=== PATIENT | female | born 1950 | race Two or more races ===

== ENCOUNTER → 2020-02-28 | Outpatient (CLI) | payer MEDICARE, OTHER | END | disposition home or self-care (01) | LOC: XY 08:38 | PROVIDERS: ATTEND Surgery | DX: M79.605 Pain in left leg (principal) | CPT/HCPCS: 93926 ==

== ENCOUNTER 2023-09-11 07:21 | Emergency (ER) | payer MEDICARE, OTHER ==
[~2023-09-11] VITALS: Ht 160 cm; Wt 59.3 kg
[2023-09-11 08:00] VITALS: BP 126/93; PULSE 95; RESP 18; TEMP 98; O2SAT 98
[2023-09-11] MEDS: LIDOCAINE 1% HCL (LOCAL ANESTH.) INJ 20ML MDV IJ ONE (08:01)
[2023-09-11] MEDS: TETANUS-DIPTH-ACEL PERTUSSIS 0.5ML SYR Tdap IM ONE (08:38)
[2023-09-11] MEDS: cefTRIAXone SOD 1,000 MG VL IM ONE (09:07)
[2023-09-11] MEDS ORDERED: CEPH500C PO (09:24)
[2023-09-11] MEDS ORDERED: NAPR-746 PO (09:24)
== END 2023-09-11 09:32 | disposition home or self-care (01) ==
LOC: ER 07:21
DX: S62.665A Nondisplaced fracture of distal phalanx of left ring finger, initial encounter for closed fracture (principal); S61.213A Laceration without foreign body of left middle finger without damage to nail, initial encounter; S61.215A Laceration without foreign body of left ring finger without damage to nail, initial encounter; G89.29 Other chronic pain; M54.9 Dorsalgia, unspecified; Z88.8 Allergy status to other drugs, medicaments and biological substances; Z90.710 Acquired absence of both cervix and uterus; W45.8XXA Other foreign body or object entering through skin, initial encounter; Y93.89 Activity, other specified; Y92.096 Garden or yard of other non-institutional residence as the place of occurrence of the external cause; Y99.8 Other external cause status
CPT/HCPCS: 12004; 73130; 90471; 90715; 96372; 99284; J0696; J2001